=== PATIENT | male | born 1990 | race Caucasian/White ===

== ENCOUNTER 2018-06-28 17:55 | Emergency (ER) | payer MEDICARE, OTHER, SELFPAY ==
[2018-06-28 17:58] VITALS: BP 149/91; PULSE 63; RESP 16; TEMP 36.6; O2SAT 99; BMI 27.7
--- NOTE | 2018-06-28 18:02 | DI.RAD.S_ITS ---
PROCEDURE: XR KNEE LT 3V INDICATIONS: unable to bear weight on left leg after rolling down hill TECHNIQUE: 3 views of the knee were acquired. COMPARISON: None. FINDINGS: Bones: No fractures or dislocations. No suspicious bony lesions. Soft tissues: No joint effusion. No suspicious soft tissue calcifications. IMPRESSION: Left knee without acute radiographic abnormalities. Dictated by: Zheng Bui M.D. on 06/28/2018 at 18:53 Approved by: Zheng Bui M.D. on 06/28/2018 at 18:54
--- NOTE | 2018-06-28 20:29 | ED.LOWEXIN ---
HPI - Extremity Injury (Lower) <Denisha Tran PA-C - Last Filed: 06/28/18 21:39> General Chief Complaint: Extremity Injury, Lower Stated Complaint: Lt knee from fall Time Seen by Provider: 06/28/18 20:16 Source: patient Mode of arrival: wheelchair Limitations: no limitations History of Present Illness HPI Narrative: This 28-year-old male states he tumbled about 10 ft down a steep trail with dirt and rocks and landed with most of the impact on his left knee. He states that he has scrapes on his left arm, but does not think he has other injuries. He denies head contusion, LOC, or vision change. He states it is very painful to put any weight on the left leg at the knee, unable to move it without a lot of pain. he cannot tell whether there is any laxity. He states his tetanus vaccine is up-to-date. Related Data Previous Rx's Medication Instructions Recorded tramadol 100 mg PO Q6H PRN #10 tab NS MDD 6 06/28/18 tabs Allergies Allergy/AdvReac Type Severity Reaction Status Date / Time No Known Drug Allergies Allergy Verified 06/28/18 17:58 Review of Systems <Denisha Tran PA-C - Last Filed: 06/28/18 21:39> Review of Systems ROS Unobtainable: All systems reviewed & are unremarkable except as noted in HPI and below PFSH <Denisha Tran PA-C - Last Filed: 06/28/18 21:39> Medical History Chronic neck and back pain (Chronic) No pertinent family history (Chronic) Surgical History (Updated 06/28/18 @ 21:34 by Denisha Tran PA-C) No pertinent past surgical history (Chronic) Social History Smoking Status: Current every day smoker Social History Smoking Status: Current every day smoker Exam <Denisha Tran PA-C - Last Filed: 06/28/18 21:39> Narrative Exam Narrative: GENERAL APPEARANCE: Patient sitting comfortably, in no distress. LUNGS: Clear to auscultation bilaterally. HEART: Rate and rhythm regular without murmur, normal S1 and S2, no S3 or S4. DERMATOLOGIC: Left knee cap is erythematous with a central nummular abrasion. No ecchymoses visible. There are scrapes and abrasions scabbed on the left posterior forearm and elbow. There are old scabs on the right lower extremity, no active bleeding MUSCULOSKELETAL: Left knee moderate effusion, tender over the patella and joint line. Able to flex to about 45? with tenderness, near full extension with tender, unable to assess for laxity secondary to tenderness. no tenderness over the lower leg or ankle. Achilles is intact by palpation. He is able to plantar and dorsiflex the ankle with some tenderness NEUROVASCULAR: The left foot is warm and pink with brisk cap refill, sensation is grossly intact Initial Vital Signs Initial Vital Signs: Vital Signs Temperature 97.8 F 06/28/18 17:58 Pulse Rate 63 06/28/18 17:58 Respiratory Rate 16 06/28/18 17:58 Blood Pressure 149/91 H 06/28/18 17:58 Pulse Oximetry 99 06/28/18 17:58 <Ayden Scanlon DO - Last Filed: 06/28/18 22:41> Initial Vital Signs Initial Vital Signs: Vital Signs Temperature 97.8 F 06/28/18 17:58 Pulse Rate 63 06/28/18 17:58 Respiratory Rate 16 06/28/18 17:58 Blood Pressure 149/91 H 06/28/18 17:58 Pulse Oximetry 99 06/28/18 17:58 Course <Denisha Tran PA-C - Last Filed: 06/28/18 21:39> Orders Ordered: ED Orders 06/28/18 18:02 XR knee LT 3V Stat Discontinued Medications Acetaminophen (Tylenol) 650 mg PO NOW ONE Stop: 06/28/18 20:48 Last Admin: 06/28/18 20:56 Dose: 650 mg Tramadol HCl (Ultram 50mg Prepack) 1 bottle MISC SEEINSTR ONE Stop: 06/28/18 20:48 Last Admin: 06/28/18 20:56 Dose: 1 bottle Tramadol HCl (Ultram) 100 mg PO NOW ONE Stop: 06/28/18 20:48 Last Admin: 06/28/18 20:56 Dose: 100 mg Vital Signs - 8 hr 06/28/18 17:58 06/28/18 21:47 Temperature 97.8 F Pulse Rate 63 71 Respiratory Rate 16 18 Blood Pressure 149/91 H 141/94 H Pulse Oximetry 99 98 <Ayden Scanlon DO - Last Filed: 06/28/18 22:41> Orders Ordered: ED Orders 06/28/18 18:02 XR knee LT 3V Stat Discontinued Medications Acetaminophen (Tylenol) 650 mg PO NOW ONE Stop: 06/28/18 20:48 Last Admin: 06/28/18 20:56 Dose: 650 mg Tramadol HCl (Ultram 50mg Prepack) 1 bottle MISC SEEINSTR ONE Stop: 06/28/18 20:48 Last Admin: 06/28/18 20:56 Dose: 1 bottle Tramadol HCl (Ultram) 100 mg PO NOW ONE Stop: 06/28/18 20:48 Last Admin: 06/28/18 20:56 Dose: 100 mg Vital Signs - 8 hr 06/28/18 17:58 06/28/18 21:47 Temperature 97.8 F Pulse Rate 63 71 Respiratory Rate 16 18 Blood Pressure 149/91 H 141/94 H Pulse Oximetry 99 98 MDM - Extremity Injury (Lower) <Denisha Tran PA-C - Last Filed: 06/28/18 21:39> Imaging Data knee: Radiologist's impression: [place] [address] XRay Report Signed Patient: Stone Curry#: [id number] : 1990Acct:[id number] Age/Sex: 28 / MDate of Service: 06/28/18 Loc: ED Accession Number: [id number] Procedure: XR knee LT 3V Ordering Provider: Ayden Scanlon D.O. PROCEDURE: XR KNEE LT 3V INDICATIONS: unable to bear weight on left leg after rolling down hill TECHNIQUE: 3 views of the knee were acquired. COMPARISON: None. FINDINGS: Bones: No fractures or dislocations. No suspicious bony lesions. Soft tissues: No joint effusion. No suspicious soft tissue calcifications. IMPRESSION: Left knee without acute radiographic abnormalities. Dictated by: Zheng Bui M.D. on 06/28/2018 at 18:53 Approved by: Zheng Bui M.D. on 06/28/2018 at 18:54 Discharge Plan Departure Patient Disposition: Home Clinical Impression: Acute internal derangement of knee Qualifiers: Laterality: left Qualified Code(s): M23.92 - Unspecified internal derangement of left knee Discharge Date/Time: 06/28/18 21:47 Interventions: ED Discharge Assessment Last Done: 06/28/18 21:47 Instructions: DI for Knee Sprain Activity Restrictions/Additional Instructions: Please wear the knee immobilizer to help keep stress off of the knee, and use crutches as you need them for walking. Use ice tonight and tomorrow. Take 800 mg of ibuprofen every 8 hours, and you can take Tylenol along with tramadol as needed in addition for pain. remember that the tramadol can make you sleepy and not to drive. There was no broken bone seen on your x-ray today however as we talked about you may have a ligament or soft tissue injury and she may need further imaging. It should be here to determine in a few days when the swelling has gone down and you can be examined more thoroughly. Please see your PCP in the next 2-3 days for follow-up. Return to the ED if any acutely worsening symptoms in the interim Prescriptions: New tramadol 50 mg tablet 100 mg PO Q6H MDD 6 tabs PRN (Reason: pain) Qty: 10 RF: 0 Referrals: [email or web address] [Provider Group] <Ayden Scanlon DO - Last Filed: 06/28/18 22:41> [facility] Ruth Attestation: I was available for consultation during this patient's emergency department encounter
--- NOTE | 2018-06-28 20:32 | ED_ITS ---
HPI - Extremity Injury (Lower) <Denisha Tran PA-C - Last Filed: 06/28/18 21:39> General Chief Complaint: Extremity Injury, Lower Stated Complaint: Lt knee from fall Time Seen by Provider: 06/28/18 20:16 Source: patient Mode of arrival: wheelchair Limitations: no limitations History of Present Illness HPI Narrative: This 28-year-old male states he tumbled about 10 ft down a steep trail with dirt and rocks and landed with most of the impact on his left knee. He states that he has scrapes on his left arm, but does not think he has other injuries. He denies head contusion, LOC, or vision change. He states it is very painful to put any weight on the left leg at the knee, unable to move it without a lot of pain. he cannot tell whether there is any laxity. He states his tetanus vaccine is up-to-date. Related Data Previous Rx's Medication Instructions Recorded tramadol 100 mg PO Q6H PRN #10 tab NS MDD 6 06/28/18 tabs Allergies Allergy/AdvReac Type Severity Reaction Status Date / Time No Known Drug Allergies Allergy Verified 06/28/18 17:58 Review of Systems <Denisha Tran PA-C - Last Filed: 06/28/18 21:39> Review of Systems ROS Unobtainable: All systems reviewed & are unremarkable except as noted in HPI and below PFSH <Denisha Tran PA-C - Last Filed: 06/28/18 21:39> Medical History Chronic neck and back pain (Chronic) No pertinent family history (Chronic) Surgical History (Updated 06/28/18 @ 21:34 by Denisha Tran PA-C) No pertinent past surgical history (Chronic) Social History Smoking Status: Current every day smoker Social History Smoking Status: Current every day smoker Exam <Denisha rTan PA-C - Last Filed: 06/28/18 21:39> Narrative Exam Narrative: GENERAL APPEARANCE: Patient sitting comfortably, in no distress. LUNGS: Clear to auscultation bilaterally. HEART: Rate and rhythm regular without murmur, normal S1 and S2, no S3 or S4. DERMATOLOGIC: Left knee cap is erythematous with a central nummular abrasion. No ecchymoses visible. There are scrapes and abrasions scabbed on the left posterior forearm and elbow. There are old scabs on the right lower extremity, no active bleeding MUSCULOSKELETAL: Left knee moderate effusion, tender over the patella and joint line. Able to flex to about 45? with tenderness, near full extension with tender, unable to assess for laxity secondary to tenderness. no tenderness over the lower leg or ankle. Achilles is intact by palpation. He is able to plantar and dorsiflex the ankle with some tenderness NEUROVASCULAR: The left foot is warm and pink with brisk cap refill, sensation is grossly intact Initial Vital Signs Initial Vital Signs: Vital Signs Temperature 97.8 F 06/28/18 17:58 Pulse Rate 63 06/28/18 17:58 Respiratory Rate 16 06/28/18 17:58 Blood Pressure 149/91 H 06/28/18 17:58 Pulse Oximetry 99 06/28/18 17:58 <Ayden Scanlon DO - Last Filed: 06/28/18 22:41> Initial Vital Signs Initial Vital Signs: Vital Signs Temperature 97.8 F 06/28/18 17:58 Pulse Rate 63 06/28/18 17:58 Respiratory Rate 16 06/28/18 17:58 Blood Pressure 149/91 H 06/28/18 17:58 Pulse Oximetry 99 06/28/18 17:58 Course <Denisha Tran PA-C - Last Filed: 06/28/18 21:39> Orders Ordered: ED Orders 06/28/18 18:02 XR knee LT 3V Stat Discontinued Medications Acetaminophen (Tylenol) 650 mg PO NOW ONE Stop: 06/28/18 20:48 Last Admin: 06/28/18 20:56 Dose: 650 mg Tramadol HCl (Ultram 50mg Prepack) 1 bottle MISC SEEINSTR ONE Stop: 06/28/18 20:48 Last Admin: 06/28/18 20:56 Dose: 1 bottle Tramadol HCl (Ultram) 100 mg PO NOW ONE Stop: 06/28/18 20:48 Last Admin: 06/28/18 20:56 Dose: 100 mg Vital Signs - 8 hr 06/28/18 17:58 06/28/18 21:47 Temperature 97.8 F Pulse Rate 63 71 Respiratory Rate 16 18 Blood Pressure 149/91 H 141/94 H Pulse Oximetry 99 98 <Ayden Scanlon DO - Last Filed: 06/28/18 22:41> Orders Ordered: ED Orders 06/28/18 18:02 XR knee LT 3V Stat Discontinued Medications Acetaminophen (Tylenol) 650 mg PO NOW ONE Stop: 06/28/18 20:48 Last Admin: 06/28/18 20:56 Dose: 650 mg Tramadol HCl (Ultram 50mg Prepack) 1 bottle MISC SEEINSTR ONE Stop: 06/28/18 20:48 Last Admin: 06/28/18 20:56 Dose: 1 bottle Tramadol HCl (Ultram) 100 mg PO NOW ONE Stop: 06/28/18 20:48 Last Admin: 06/28/18 20:56 Dose: 100 mg Vital Signs - 8 hr 06/28/18 17:58 06/28/18 21:47 Temperature 97.8 F Pulse Rate 63 71 Respiratory Rate 16 18 Blood Pressure 149/91 H 141/94 H Pulse Oximetry 99 98 MDM - Extremity Injury (Lower) <Denisha Tran PA-C - Last Filed: 06/28/18 21:39> Imaging Data knee: Radiologist's impression: [place] [address] XRay Report Signed Patient: Stone Curry#: [id number] : 1990Acct:[id number] Age/Sex: 28 / MDate of Service: 06/28/18 Loc: ED Accession Number: [id number] Procedure: XR knee LT 3V Ordering Provider: Ayden Scanlon D.O. PROCEDURE: XR KNEE LT 3V INDICATIONS: unable to bear weight on left leg after rolling down hill TECHNIQUE: 3 views of the knee were acquired. COMPARISON: None. FINDINGS: Bones: No fractures or dislocations. No suspicious bony lesions. Soft tissues: No joint effusion. No suspicious soft tissue calcifications. IMPRESSION: Left knee without acute radiographic abnormalities. Dictated by: Zheng Bui M.D. on 06/28/2018 at 18:53 Approved by: Zheng Bui M.D. on 06/28/2018 at 18:54 Discharge Plan Departure Patient Disposition: Home Clinical Impression: Acute internal derangement of knee Qualifiers: Laterality: left Qualified Code(s): M23.92 - Unspecified internal derangement of left knee Discharge Date/Time: 06/28/18 21:47 Interventions: ED Discharge Assessment Last Done: 06/28/18 21:47 Instructions: DI for Knee Sprain Activity Restrictions/Additional Instructions: Please wear the knee immobilizer to help keep stress off of the knee, and use crutches as you need them for walking. Use ice tonight and tomorrow. Take 800 mg of ibuprofen every 8 hours, and you can take Tylenol along with tramadol as needed in addition for pain. remember that the tramadol can make you sleepy and not to drive. There was no broken bone seen on your x-ray today however as we talked about you may have a ligament or soft tissue injury and she may need further imaging. It should be here to determine in a few days when the swelling has gone down and you can be examined more thoroughly. Please see your PCP in the next 2-3 days for follow-up. Return to the ED if any acutely worsening symptoms in the interim Prescriptions: New tramadol 50 mg tablet 100 mg PO Q6H MDD 6 tabs PRN (Reason: pain) Qty: 10 RF: 0 [facility]: [facility] [[facility]] <Ayden Scanlon DO - Last Filed: 06/28/18 22:41> [facility] Attestation: I was available for consultation during this patient's emergency department encounter
[2018-06-28] MEDS: TRAMADOL 50 MG PREPACK 1 BOTTLE MISC (20:56)
[2018-06-28] MEDS: ACETAMINOPHEN 325 MG TABLET 650 MG PO (20:56)
[2018-06-28] MEDS: TRAMADOL 50 MG TABLET 100 MG PO (20:56)
[2018-06-28 21:47] VITALS: BP 141/94; PULSE 71; RESP 18; O2SAT 98
== END 2018-06-28 21:47 | disposition home or self-care (01) ==
PROVIDERS: Emergency Provider Internal Medicine
DX: M23.92 Unspecified internal derangement of left knee (principal); W19.XXXA Unspecified fall, initial encounter
CPT/HCPCS: 73562; 99283

== ENCOUNTER → 2018-07-14 14:08 | Outpatient (CLI) | payer MEDICARE, OTHER, SELFPAY ==
--- NOTE | 2018-07-14 | DI.MRI.S_ITS ---
PROCEDURE: MR KNEE LT WO CON INDICATIONS: PAIN IN LEFT KNEE TECHNIQUE: Noncontrast sagittal PD fast spin echo and T2 fast spin echo with fat saturation, sagittal 3-D FLASH with fat saturation; coronal T1 spin echo and PD fast spin echo with fat saturation, and axial PD fast spin echo with fat saturation through the knee. COMPARISON: [facility], CR, XR KNEE LT 3V, 06/28/2018, 18:14. FINDINGS: Image quality: Excellent. Menisci: The medial and lateral menisci demonstrate normal morphology and internal signal. The meniscal root ligaments appear intact. Cruciate ligaments: The anterior and posterior cruciate ligaments appear intact. Medial structures: The medial collateral ligament appears intact. Visualized portions of the pes anserinus tendons appear normal. No abnormal bursal fluid. Lateral structures: The lateral collateral ligament, long and short heads of the biceps femoris tendon appear intact. The popliteus tendon appears normal. Iliotibial band appears normal. Anterior structures: The quadriceps and patellar tendons appear intact. There is tearing of the medial patellar retinaculum at the patellar insertion site, with moderate surrounding ill-defined T2 signal elevation. Patellar alignment is normal. No femoral trochlear dysplasia or ventral trochlear prominence. No edema in the infrapatellar fat pad. Moderate prepatellar edema and fluid. Bones and cartilage: Moderate ill-defined T2 signal elevation within the medial aspect of the patella. Mild ill-defined T2 signal elevation within the anterior nonweightbearing aspect of the lateral femoral condyle. Severe ill-defined T2 signal elevation within the anterior aspect of the medial and lateral tibial plateau. There is a roughly 8 mm diameter region of moderate articular cartilage loss overlying the lateral patellar apex. Joint space: There is a small knee joint effusion and a small Donovan's cyst. Normal appearing synovial plicae are incidentally noted. IMPRESSION: 1. Contusions within the medial patella and lateral femoral condyle, as well as tearing of the medial patellar retinaculum, indicating sequelae of recent lateral patellar dislocation. 2. Severe contusion of the anterior aspects of the medial and lateral tibial plateau. 3. Small knee joint effusion and small Donovan's cyst. 4. Prepatellar soft tissue injury. Dictated by: Cesar Serra M.D. on 07/14/2018 at 15:06 Approved by: Cesar Serra M.D. on 07/14/2018 at 15:10
== END ==
PROVIDERS: PCP Registered Nurse; Visit Provider Family Medicine
DX: M25.562 Pain in left knee (principal); S80.02XA Contusion of left knee, initial encounter; S83.8X2A Sprain of other specified parts of left knee, initial encounter; M25.462 Effusion, left knee; M71.22 Synovial cyst of popliteal space [Baker], left knee
CPT/HCPCS: 73721